=== PATIENT | male | born 1995 | race Hispanic/Latino ===

== ENCOUNTER 2023-04-27 13:16 | Emergency (ER) | payer OTHER ==
[~2023-04-27] VITALS: Ht 182.9 cm; Wt 63.5 kg
[2023-04-27] MEDS ORDERED: TETANUS/DIPHTHERIA TOXOID [ADULT] 0.5 ML VIAL IM ONE (13:30)
[2023-04-27 15:21] VITALS: BP 133/78; PULSE 78; RESP 18; O2SAT 98
== END 2023-04-27 15:26 | disposition home or self-care (01) ==
LOC: EDBD 13:16 → EDH 13:16
DX: S61.512A Laceration without foreign body of left wrist, initial encounter (principal); W26.0XXA Contact with knife, initial encounter; Y93.89 Activity, other specified; Y92.89 Other specified places as the place of occurrence of the external cause; Y99.8 Other external cause status
CPT/HCPCS: 12002; 73100; 90471; 90714